=== PATIENT | female | born 1995 | race Hispanic/Latino ===

== ENCOUNTER → 2022-01-20 | Outpatient (CLI) | payer BC ==
[~2022-01-20] MED LIST: OMEPRAZOLE40 MG PO; ONDANSETRON ODT4 MG PO; PROPRANOLOL HCL10 MG PO; SUCRALFATE1 GM PO; XANAX1 MG PO
== END ==
LOC: US 07:48
PROVIDERS: ATTEND Internal Medicine Gastroenterology
DX: R10.10 Upper abdominal pain, unspecified (principal)
CPT/HCPCS: 76700